=== PATIENT | female | born 1970 | race Caucasian/White ===

== ENCOUNTER → 2019-07-09 | Outpatient (CLI) | payer MEDICAID, MEDICARE, OTHER ==
[~2019-07-09] MED LIST: AMOX500C2 PO; ARMO150T3 PO; DULO60CA6 PO; EST.625T PO; FRS325T PO; HYDR-623 PO; MELO-195 PO; NS.65NA45; OXC5T PO; OXYC-12 PO; PRM25T PO; SUMA100T2 PO
--- NOTE | 2019-07-09 13:32 | Diagnostic Imaging Report ---
Indication: Bilateral breast tenderness. Correlation is made with prior mammogram 07/27/2013 and 02/08/2012. 2-D and 3-D bilateral diagnostic mammography was performed with CAD. BB markers were placed at the areas of tenderness bilateral breasts. This appears to be in the upper outer aspects bilaterally. Scattered fibroglandular densities are identified bilaterally. No mass or malignant-appearing microcalcifications are seen. The axillae are unremarkable. Impression: BI-RADS 0 No mammographic features suspicious for malignancy are identified. Even so, directed sonographic interrogation of the areas of tenderness in the upper-outer aspects of both breasts is recommended and will be performed today. Dictated by: Dictated on workstation # [id number]
--- NOTE | 2019-07-09 15:34 | Diagnostic Imaging Report ---
INDICATION: Bilateral breast tenderness. COMPARISON: Correlation is made with the diagnostic mammogram from earlier this same day. TECHNIQUE/FINDINGS: Sonographic interrogation of the areas of tenderness in the lateral aspects of the bilateral breasts was performed. No sonographic abnormality is seen. No solid or cystic mass is detected. IMPRESSION: No sonographic abnormality is seen. Dictated by: Dictated on workstation # [id number]
== END ==
LOC: RAD 12:54
PROVIDERS: ATTEND Obstetrics & Gynecology
DX: N64.4 Mastodynia (principal)
CPT/HCPCS: 76642; 77066

== ENCOUNTER 2021-09-24 19:09 | Emergency (ER) | payer SELFPAY ==
[~2021-09-24] VITALS: Ht 160 cm; Wt 66.0 kg
[2021-09-24] MEDS ORDERED: methylPREDNISolone 125 MG (Solu-MEDROL) VIAL IVP ONE (19:45)
[2021-09-24] MEDS ORDERED: KETOROLAC 30 MG/ML VIAL IVP ONE (19:45)
[2021-09-24] MEDS ORDERED: LACTATED RINGERS 1,000 ML IV ONE (19:45)
[2021-09-24 20:43] LABS: BASOPHILS % (AUTO) 0 % (0-10); EOSINOPHILS # (AUTO) 0.2 10^3/uL (0.0-0.3); EOSINOPHILS % (AUTO) 2 % (0-10); HEMATOCRIT 40 % (35-52); HEMOGLOBIN 13.3 g/dL (11.5-16.0); LYMPHOCYTES # (AUTO) 3.2 10^3/uL (1.0-4.0); LYMPHOCYTES % (AUTO) 39 % (12-44); MEAN CORPUSCULAR HEMOGLOBIN 31 pg (25-34); MEAN CORPUSCULAR HGB CONC 34 g/dL (32-36); MEAN CORPUSCULAR VOLUME 93 fL (80-99); MEAN PLATELET VOLUME 11.9 fL (9.0-12.2); MONOCYTES # (AUTO) 0.7 10^3/uL (0.0-1.0); MONOCYTES % (AUTO) 8 % (0-12); NEUTROPHILS # (AUTO) 4.2 10^3/uL (1.8-7.8); NEUTROPHILS % (AUTO) 50 % (42-75); PLATELET COUNT 235 10^3/uL (130-400); WHITE BLOOD COUNT 8.4 10^3/uL (4.3-11.0)
--- NOTE | 2021-09-24 20:55 | ED Headache ---
General Chief Complaint: Head/Cervical Problems Stated Complaint: HEAD PAIN Nursing Triage Note: PT AMB TO ED BY PO WITH C/O HEADACHE X5 DAYS. PT REPORTS THE LAWSON STARTS AT THE BASE OF HER SKULL AND GOES UP HER HEAD, HAS TAKEN ADVIL BUT LAWSON PERSISTS. HAS HAD MIGRAINES IN THE PAST, BUT REPORTS THIS FEELS DIFFERENT. Source: patient Exam Limitations: no limitations (YORDAN ANTHONY MD) History of Present Illness Date Seen by Provider: Sep 24, 2021 Time Seen by Provider: 19:29 Initial Comments This 51-year-old woman presents to the emergency room with complaints of 5 days of headache that starts at the base of the skull and wraps around over the occiput and to the parietal area. It is responsive to acetaminophen and ibuprofen but immediately rebounds after the medication effect wears off. Her last dose was 5 to 6 hours ago. She denies any acute neurologic deficits. She has had tinnitus for about 3 to 4 years. She reports history of migraines years ago but this headache seems different. She denies any trauma or notable triggers. When discussing neurologic deficits, she states she has had some difficulty swallowing liquids for a few years now but that has not changed in a ssociation with the headache. On exam she has very tight paraspinous musculature in the cervical spine. (YORDAN ANTHONY MD) Allergies and Home Medications Allergies Coded Allergies: morphine sulfate (Unverified Adverse Reaction, Mild, GI EFFECTS, 05/21/11) Patient Home Medication List Home Medication List Reviewed: Yes (YORDAN ANTHONY MD) Armodafinil (Nuvigil) 150 Mg Tablet, 75 MG PO DAILY, (Reported) Entered as Reported by: LUZ MARINA RM on 02/01/12 1253 Duloxetine Hcl (Cymbalta) 60 Mg Capsule.dr, 1 EACH PO BID, (Reported) Entered as Reported by: LUZ MARINA RM on 02/01/12 1253 Estrogens,Conjugated (Premarin) 0.625 Mg Tablet, 1 TAB PO DAILY, (Reported) Entered as Reported by: HUONG SÁNCHEZ on 01/25/12 1012 Ferrous Sulfate (Iron) 325 Mg Tablet, 1 TAB PO DAILY, (Reported) Entered as Reported by: HUONG SÁNCHEZ on 01/25/12 1012 Meloxicam (Meloxicam) 15 Mg Tablet, 1 EACH PO DAILY, (Reported) Entered as Reported by: LUZ MARINA RM on 02/01/12 1253 Oxycodone Hcl/Acetaminophen (Percocet 5-325 Mg Tablet) 1 Each Tablet, 1 EACH PO Q4H PRN, (Reported) Entered as Reported by: HUONG SÁNCHEZ on 01/25/12 1012 Promethazine Hcl (Phenergan 25 Mg) 25 Mg Tablet, 1 TAB PO Q6H PRN, (Reported) Entered as Reported by: LUZ MARINA RM on 02/01/12 1253 Sumatriptan Succinate (Imitrex) 100 Mg Tablet, 0 PO UD, (Reported) Entered as Reported by: LUZ MARINA RM on 02/01/12 1253 Review of Systems Review of Systems Constitutional: no symptoms reported Eyes: No Symptoms Reported Ears, Nose, Mouth, Throat: no symptoms reported Respiratory: no symptoms reported Cardiovascular: no symptoms reported Gastrointestinal: no symptoms reported Genitourinary: no symptoms reported Musculoskeletal: see HPI Skin: no symptoms reported Psychiatric/Neurological: See HPI (YORDAN ANTHONY MD) Past Fefwnqy-Jpppsl-Sdmpps Hx Patient Social History Tobacco Use?: Yes Tobacco type used: Cigarettes Smoking Status: Current Everyday Smoker Use of E-Cig and/or Vaping dev: No Substance use?: No Alcohol Use?: No (YORDAN ANTHONY MD) Immunizations Up To Date Influenza Vaccine Up-to-Date: No; Not Current First/Initial COVID19 Vaccinat: 2020 Second COVID19 Vaccination Igor: 2020 COVID19 Vaccine [place]: ELLYN (YORDAN ANTHONY MD) Past Medical History Surgery/Hospitalization HX: HYST, L SHOULDER Surgeries: Yes Bladder Surgery, Hysterectomy, Orthopedic (Shoulder surgery) Respiratory: No Cardiac: No Neurological: Yes Headaches /Migraines : No Reproductive Disorders: No Sexually Transmitted Disease: No Genitourinary: No Gastrointestinal: No Musculoskeletal: No Endocrine: No HEENT: No Cancer: No Psychosocial: No Integumentary: No (YORDAN ANTHONY MD) Physical Exam Vital Signs Vital Signs - First Documented 09/24/21 19:15 Temp 36.6 Pulse 80 Resp 16 B/P (MAP) 155/87 (109) Pulse Ox 96 O2 Delivery Room Air (AGUSTIN LAWRENCE) Vital Signs Capillary Refill : Less Than 3 Seconds (YORDAN ANTHONY MD) Height, Weight, BMI Height: '" Weight: lbs. oz. kg; 25.00 BMI Method:Stated General Appearance: WD/WN, mild distress HEENT: PERRL/EOMI, normal ENT inspection, TMs normal, pharynx normal Neck: normal inspection, other (Mildly tender very tense paraspinous musculature in the superior cervical spine, right greater than left) Cardiovascular: regular rate, rhythm, no edema, no murmur Respiratory: lungs clear, normal breath sounds, no respiratory distress Gastrointestinal: non tender, soft Extremities: normal inspection, no pedal edema Psychiatric: alert, oriented x 3 Crainal Nerves: normal hearing, normal speech, PERRL Coordination/Gait: normal finger to nose (Normal [id number]) Motor/Sensory: no motor deficit, no sensory deficit Skin: normal color, warm/dry (YORDAN ANHTONY MD) Progress/Results/Core Measures Results/Orders Lab Results Laboratory Tests Test 09/24/21 20:30 Range/Units White Blood Count 8.4 4.3-11.0 10^3/uL Red Blood Count 4.28 3.80-5.11 10^6/uL Hemoglobin 13.3 11.5-16.0 g/dL Hematocrit 40 35-52 % Mean Corpuscular Volume 93 80-99 fL Mean Corpuscular Hemoglobin 31 25-34 pg Mean Corpuscular Hemoglobin Concent 34 32-36 g/dL Red Cell Distribution Width 12.8 10.0-14.5 % Platelet Count 235 130-400 10^3/uL Mean Platelet Volume 11.9 9.0-12.2 fL Immature Granulocyte % (Auto) 0 % Neutrophils (%) (Auto) 50 42-75 % Lymphocytes (%) (Auto) 39 12-44 % Monocytes (%) (Auto) 8 0-12 % Eosinophils (%) (Auto) 2 0-10 % Basophils (%) (Auto) 0 0-10 % Neutrophils # (Auto) 4.2 1.8-7.8 10^3/uL Lymphocytes # (Auto) 3.2 1.0-4.0 10^3/uL Monocytes # (Auto) 0.7 0.0-1.0 10^3/uL Eosinophils # (Auto) 0.2 0.0-0.3 10^3/uL Basophils # (Auto) 0.0 0.0-0.1 10^3/uL Immature Granulocyte # (Auto) 0.0 0.0-0.1 10^3/uL Sodium Level 141 135-145 MMOL/L Potassium Level 4.0 3.6-5.0 MMOL/L Chloride Level 109 H 98-107 MMOL/L Carbon Dioxide Level 22 21-32 MMOL/L Anion Gap 10 5-14 MMOL/L Blood Urea Nitrogen 8 7-18 MG/DL Creatinine 0.74 0.60-1.30 MG/DL Estimat Glomerular Filtration Rate 83 BUN/Creatinine Ratio 11 Glucose Level 90 70-105 MG/DL Calcium Level 9.5 8.5-10.1 MG/DL Magnesium Level 2.2 1.6-2.4 MG/DL (AGUSTIN LAWRENCE) Medications Given in ED Current Medications Medications Dose Ordered Sig/Ahmet Route Start Time Stop Time Status Last Admin Dose Admin Ketorolac Tromethamine 30 mg ONCE ONCE IVP 09/24/21 19:45 09/24/21 19:46 DC 09/24/21 20:30 30 MG Lactated Ringer's 1,000 ml @ 0 mls/hr Q0M ONCE IV 09/24/21 19:45 09/24/21 19:46 DC 09/24/21 20:30 0 MLS/HR Methylprednisolone Sodium Succinate 125 mg ONCE ONCE IVP 09/24/21 19:45 09/24/21 19:46 DC 09/24/21 20:30 125 MG (AGUSTIN LAWRENCE) Vital Signs/I&O 09/24/21 19:15 Temp 36.6 Pulse 80 Resp 16 B/P (MAP) 155/87 (109) Pulse Ox 96 O2 Delivery Room Air (AGUSTIN LAWRENCE) Blood Pressure Mean: 109 Progress Progress Note #1: Time: 20:54 Progress Note Patient has been treated with Toradol and IV fluids. Solu-Medrol was added due to prolonged headache. Solu-Medrol will hopefully help prevent rebound. We are not giving any muscle relaxers at this time due to her need to drive home. Reina Lawrence, MS3 also performed OMM therapy. Basic labs were drawn and are pending at this time. Progress Note #2: Progress Note OMM was performed under my supervision and with my approval. Patient reported improvement after the therapy. Progress Note #3: Time: 21:24 Progress Note Lab evaluation was unremarkable. Patient feels much better after delivered therapies. See discharge instructions for further discussion. 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 Pt reported her neck pain had "improved a little" since initiation of her medications, rating the pain as 2/10. Pt consent was given for physical examination of neck musculature. Tight tissue texture was noted in the suboccipital region, with asymmetry on the right side. There was no tenderness to palpation. Permission was given by pt to treat the musculature. Pt was informed that said treatments were meant to be relaxing, and to report any discomfort throughout the process. OMM was performed while pt was supine, including suboccipital release, cervical ART, and soft tissue techniques including perpendicular traction and cradling with traction. Pt was repeatedly asked if she was doing okay or if there was any discomfort. Pt continuously reported she was doing fine, and confirmed upon completion of treatment that it had been relaxing. (AGUSTIN LAWRENCE) Departure Impression Primary Impression: Tension type headache Qualified Codes: G44.209 - Tension-type headache, unspecified, not intractable Additional Impression: Neck muscle spasm Disposition: HOME, SELF-CARE Condition: Improved Admissions Decision to Admit Reason: Admit from ER (General) Decision to Admit/Date: Sep 24, 2021 Time/Decision to Admit Time: 21:28 (YORDAN ANTHONY MD) Departure-Patient Inst. Decision time for Depature: 21:24 (YORDAN ANTHONY MD) Referrals: ARLETH ORTIZ MD (PCP/Family) Primary Care Physician Patient Instructions: Tension Headache Add. Discharge Instructions: Drink plenty of clear liquids to stay well-hydrated. You may continue to use ibuprofen up to 600 mg every 6 hours as needed and/or Tylenol (acetaminophen) up to 1000 mg every 6 hours as needed for headache. You may use cyclobenzaprine as prescribed for muscle spasms or tension in your neck. Please use this medication with caution as it may cause drowsiness. Do not drive, operate machinery, or make important decisions or do other dangerous activities while on this medication. Concentrate on treatment of the tension in your neck which might include gentle stretching, gentle heat, massage, etc. If your headache has not resolved after a few days, please see your primary care provider and discuss further work-up and treatment. Further evaluation may be warranted which might include other lab work such as vitamin D, imaging of the head such as CT or MRI, etc. at the discretion of your primary care provider. Return to the ER if you have worsening symptoms despite treatment including escalating pain or neurologic deficits such as changes in vision, weakness or numbness of any body part, facial drooping, difficulty speaking, etc. Call with questions or concerns. Call your primary care provider's office tomorrow to get an appointment scheduled. This appointment can always be canceled later if your symptoms completely resolved. All discharge instructions reviewed with patient and/or family. Voiced understanding. Scripts Cyclobenzaprine HCl (Cyclobenzaprine HCl) 10 Mg Tablet 10 MG PO Q8H PRN for SPASMS, #15 TAB 0 Refills Prov: YORDAN ANTHONY MD 09/24/21 Copy Copies To 1: ARLETH ORTIZ MD, JOSHUA T MD Sep 24, 2021 20:55 AGUSTIN LAWRENCE Sep 24, 2021 21:21
[2021-09-24 20:56] LABS: CALCIUM 9.5 MG/DL (8.5-10.1); CREATININE SERUM 0.74 MG/DL (0.60-1.30); MAGNESIUM 2.2 MG/DL (1.6-2.4)
[2021-09-24] MEDS ORDERED: CYCL10TA25 PO (21:28)
[2021-09-24 21:40] VITALS: BP 135/87
== END 2021-09-24 21:41 | disposition home or self-care (01) ==
LOC: EDUNIT# 19:09 → ER 19:11
DX: G44.209 Tension-type headache, unspecified, not intractable (principal); M62.838 Other muscle spasm; F17.210 Nicotine dependence, cigarettes, uncomplicated
CPT/HCPCS: 36415; 80048; 83735; 85025; 96374; 96375

== ENCOUNTER 2023-07-01 12:19 | Emergency (ER) | payer SELFPAY ==
[~2023-07-01] VITALS: Ht 160 cm; Wt 70.3 kg
[~2023-07-01 12:19] MED LIST changes: +CYCL10TA25 PO
[2023-07-01 12:36] LABS: BASOPHILS # (AUTO) 0.1 10^3/uL (0.0-0.1); BASOPHILS % (AUTO) 1 % (0-10); EOSINOPHILS # (AUTO) 0.2 10^3/uL (0.0-0.3); EOSINOPHILS % (AUTO) 3 % (0-10); HEMATOCRIT 42 % (35-52); LYMPHOCYTES # (AUTO) 2.5 10^3/uL (1.0-4.0); LYMPHOCYTES % (AUTO) 33 % (12-44); MEAN CORPUSCULAR HEMOGLOBIN 32 pg (25-34); MEAN CORPUSCULAR HGB CONC 34 g/dL (32-36); MEAN CORPUSCULAR VOLUME 94 fL (80-99); MONOCYTES # (AUTO) 0.8 10^3/uL (0.0-1.0); MONOCYTES % (AUTO) 10 % (0-12); NEUTROPHILS # (AUTO) 4.1 10^3/uL (1.8-7.8); NEUTROPHILS % (AUTO) 54 % (42-75); PLATELET COUNT 248 10^3/uL (130-400); WHITE BLOOD COUNT 7.6 10^3/uL (4.3-11.0)
[2023-07-01 12:54] LABS: ALBUMIN 4.3 GM/DL (3.2-4.5); BILIRUBIN,TOTAL 0.3 MG/DL (0.1-1.0); CALCIUM 9.4 MG/DL (8.5-10.1); CREATININE SERUM 0.79 MG/DL (0.60-1.30); TOTAL PROTEIN 7.1 GM/DL (6.4-8.2)
--- NOTE | 2023-07-01 12:54 | ED Abdominal Pain ---
General Chief Complaint: Abdominal/GI Problems Stated Complaint: ABD PAIN Nursing Triage Note: PT AMB TO RM 7 WITH COMPLAINT OF LOW ABD PAIN. STATES STARTED YESTERDAY. DESCRIBES SORE. DENIES N/V/D Source of Information: Patient Exam Limitations: No Limitations (MAUREEN FLORIAN) History of Present Illness Date Seen by Provider: Jul 01, 2023 Time Seen by Provider: 12:51 Initial Comments Patient is a 53-year-old female who presents to the ED for mid abdominal pain. Abdominal pain started yesterday. Pain is described as dull and sore and const ant. Rates pain 4 out of 10. Pain radiates bilateral abdomen. She denies nausea, vomiting, diarrhea. No urinary symptoms. Patient took a leftover oxycodone without much improvement. History of cholecystectomy, hysterectomy, bladder lift. Patient denies of any flulike symptoms such as shortness of breath, cough, runny nose, sore throat or sinus pressure. Denies history of si milar type symptoms. Denies of any bloody mucousy stool. No urinary symptoms (MAUREEN FLORIAN) Allergies and Home Medications Allergies Coded Allergies: morphine sulfate (Unverified Adverse Reaction, Mild, GI EFFECTS, 05/21/11) Patient Home Medication List Home Medication List Reviewed: Yes (MAUREEN FLORIAN) Armodafinil (Nuvigil) 150 Mg Tablet, 75 MG PO DAILY, (Reported) Entered as Reported by: LUZ MARINA RM on 02/01/12 1253 Cyclobenzaprine HCl (Cyclobenzaprine HCl) 10 Mg Tablet, 10 MG PO Q8H PRN for SPASMS Prescribed by: YORDAN MORRELL on 09/24/212127 Duloxetine Hcl (Cymbalta) 60 Mg Capsule.dr, 1 EACH PO BID, (Reported) Entered as Reported by: LUZ MARINA RM on 02/01/12 1253 Estrogens,Conjugated (Premarin) 0.625 Mg Tablet, 1 TAB PO DAILY, (Reported) Entered as Reported by: HUONG SÁNCHEZ on 01/25/12 1012 Ferrous Sulfate (Iron) 325 Mg Tablet, 1 TAB PO DAILY, (Reported) Entered as Reported by: HUONG SÁNCHEZ on 01/25/12 1012 Meloxicam (Meloxicam) 15 Mg Tablet, 1 EACH PO DAILY, (Reported) Entered as Reported by: LUZ MARINA RM on 02/01/12 1253 Ondansetron (Ondansetron Odt) 4 Mg Tab.rapdis, 4 MG SL Q4H PRN for NAUSEA/VOMITING Prescribed by: MEGA SANDOVAL on 07/01/23 1412 Oxycodone Hcl/Acetaminophen (Percocet 5-325 Mg Tablet) 1 Each Tablet, 1 EACH PO Q4H PRN, (Reported) Entered as Reported by: HUONG SÁNCHEZ on 01/25/12 1012 Promethazine Hcl (Phenergan 25 Mg) 25 Mg Tablet, 1 TAB PO Q6H PRN, (Reported) Entered as Reported by: LUZ MARINA RM on 02/01/12 1253 Sumatriptan Succinate (Imitrex) 100 Mg Tablet, 0 PO UD, (Reported) Entered as Reported by: LUZ MARINA RM on 02/01/12 1253 Review of Systems Review of Systems Constitutional: No chills, No diaphoresis EENTM: No Double Vision, No Eye Pain Respiratory: Denies Cough, Denies Orthopnea Cardiovascular: Denies Chest Pain Gastrointestinal: Abdominal Pain; Denies Diarrhea, Denies Nausea, Denies Vomiting Genitourinary: Denies Burning, Denies Discharge Musculoskeletal: No back pain, No joint pain Skin: No change in color, No change in hair/nails (MAUREEN FLORIAN) All Other Systems Reviewed Negative Unless Noted: Yes (MAUREEN FLORIAN) Past Kfxvnuq-Jyigrt-Rhzhav Hx Patient Social History Tobacco Use?: Yes Tobacco type used: Cigarettes Smoking Status: Current Everyday Smoker Use of E-Cig and/or Vaping dev: No Substance use?: No Alcohol Use?: No Pt feels they are or have been: No (MAUREEN FLORIAN) Immunizations Up To Date First/Initial COVID19 Vaccinat: 2020 Second COVID19 Vaccination Igor: 2020 Third COVID19 Vaccination Date: 2020 (MAUREEN FLORIAN) Past Medical History Surgery/Hospitalization HX: HYST, L SHOULDER Surgeries: Yes Bladder Surgery, Hysterectomy, Orthopedic Respiratory: No Cardiac: No Neurological: Yes Headaches /Migraines Reproductive Disorders: No Sexually Transmitted Disease: No Genitourinary: No Gastrointestinal: No Musculoskeletal: No Endocrine: No HEENT: No Cancer: No Psychosocial: No Integumentary: No (MAUREEN FLORIAN) Physical Exam Vital Signs Vital Signs - First Documented 07/01/23 12:23 Temp 36.0 Pulse 86 Resp 16 B/P (MAP) 150/79 (102) Pulse Ox 95 O2 Delivery Room Air (KEITH,JOSELITO K DO) Vital Signs Capillary Refill : Less Than 3 Seconds (MAUREEN FLORIAN) Height/Weight/BMI Height: '" Weight: lbs. oz. kg; 27.00 BMI Method:Stated General Appearance: WD/WN, no apparent distress HEENT: PERRL/EOMI, normal ENT inspection, TMs normal, pharynx normal Neck: non-tender, full range of motion, supple, normal inspection Respiratory: chest non-tender, lungs clear, normal breath sounds, no respiratory distress, no accessory muscle use Cardiovascular: regular rate, rhythm, no edema, no gallop, no JVD Gastrointestinal: normal bowel sounds, soft, no pulsatile mass, tenderness (Mid abdominal tenderness. Normal bowel sounds throughout) Extremities: normal range of motion, non-tender, normal inspection, no pedal edema Back: normal inspection, no CVA tenderness Neurologic/Psychiatric: stone belt sander II-XII nml as tested, no motor/sensory deficits, alert, normal mood/affect, oriented x 3 Skin: normal color, warm/dry (MAUREEN FLORIAN) Progress/Results/Core Measures Results/Orders Lab Results Laboratory Tests Test 07/01/23 12:27 07/01/23 12:33 Range/Units White Blood Count 7.6 4.3-11.0 10^3/uL Red Blood Count 4.42 3.80-5.11 10^6/uL Hemoglobin 14.0 11.5-16.0 g/dL Hematocrit 42 35-52 % Mean Corpuscular Volume 94 80-99 fL Mean Corpuscular Hemoglobin 32 25-34 pg Mean Corpuscular Hemoglobin Concent 34 32-36 g/dL Red Cell Distribution Width 12.8 10.0-14.5 % Platelet Count 248 130-400 10^3/uL Mean Platelet Volume 12.0 9.0-12.2 fL Immature Granulocyte % (Auto) 0 % Neutrophils (%) (Auto) 54 42-75 % Lymphocytes (%) (Auto) 33 12-44 % Monocytes (%) (Auto) 10 0-12 % Eosinophils (%) (Auto) 3 0-10 % Basophils (%) (Auto) 1 0-10 % Neutrophils # (Auto) 4.1 1.8-7.8 10^3/uL Lymphocytes # (Auto) 2.5 1.0-4.0 10^3/uL Monocytes # (Auto) 0.8 0.0-1.0 10^3/uL Eosinophils # (Auto) 0.2 0.0-0.3 10^3/uL Basophils # (Auto) 0.1 0.0-0.1 10^3/uL Immature Granulocyte # (Auto) 0.0 0.0-0.1 10^3/uL Sodium Level 139 135-145 MMOL/L Potassium Level 4.0 3.6-5.0 MMOL/L Chloride Level 108 H 98-107 MMOL/L Carbon Dioxide Level 23 21-32 MMOL/L Anion Gap 8 5-14 MMOL/L Blood Urea Nitrogen 8 7-18 MG/DL Creatinine 0.79 0.60-1.30 MG/DL Estimat Glomerular Filtration Rate 91 BUN/Creatinine Ratio 10 Glucose Level 100 70-105 MG/DL Calcium Level 9.4 8.5-10.1 MG/DL Corrected Calcium 9.2 8.5-10.1 MG/DL Total Bilirubin 0.3 0.1-1.0 MG/DL Aspartate Amino Transf (AST/SGOT) 15 5-34 U/L Alanine Aminotransferase (ALT/SGPT) 10 0-55 U/L Alkaline Phosphatase 64 40-136 U/L C-Reactive Protein High Sensitivity 0.18 0.00-0.50 MG/DL Total Protein 7.1 6.4-8.2 GM/DL Albumin 4.3 3.2-4.5 GM/DL Amylase Level 47 25-125 U/L Lipase 47 8-78 U/L Urine Color YELLOW Urine Clarity CLEAR Urine pH 5.5 5-9 Urine Specific [place] 1.010 L 1.016-1.022 Urine Protein NEGATIVE NEGATIVE Urine Glucose (UA) NEGATIVE NEGATIVE Urine Ketones NEGATIVE NEGATIVE Urine Nitrite NEGATIVE NEGATIVE Urine Bilirubin NEGATIVE NEGATIVE Urine Urobilinogen 0.2 < = 1.0 MG/DL Urine Leukocyte Esterase NEGATIVE NEGATIVE Urine RBC (Auto) NEGATIVE NEGATIVE Urine RBC NONE /HPF Urine WBC NONE /HPF Urine Squamous Epithelial Cells 0-2 /HPF Urine Crystals NONE /LPF Urine Bacteria NEGATIVE /HPF Urine Casts NONE /LPF Urine Mucus NEGATIVE /LPF Urine Culture Indicated NO (KEITHJOSELITOJodi Cabrera DO) My Orders Orders - JOSELITO PARKER DO Ed Iv/Invasive Line Start (07/01/23 12:24) Monitor-Rhythm Ecg Trace Only (07/01/23 12:24) Amylase (07/01/23 12:24) Cbc With Automated Diff (07/01/23 12:24) Comprehensive Metabolic Panel (07/01/23 12:24) Hs C Reactive Protein (07/01/23 12:24) Lipase (07/01/23 12:24) Ua Culture If Indicated (07/01/23 12:24) (JOSELITO PARKER DO) Medications Given in ED Current Medications Medications Dose Ordered Sig/Ahmet Route Start Time Stop Time Status Last Admin Dose Admin Iohexol 100 ml ONCE ONCE IV 07/01/23 13:15 07/01/23 13:16 DC 07/01/23 13:31 80 ML Sodium Chloride 100 ml ONCE ONCE IV 07/01/23 13:15 07/01/23 13:16 DC 07/01/23 13:31 80 ML (JOSELITO PARKER DO) Vital Signs/I&O 07/01/23 07/01/23 12:23 14:18 Temp 36.0 36.0 Pulse 86 86 Resp 16 16 B/P (MAP) 150/79 (102) 145/76 Pulse Ox 95 95 O2 Delivery Room Air Room Air (JOSELITO PARKER DO) Blood Pressure Mean: 102 Departure Communication (PCP) Reviewed previous ER visits, H&P, lab testing. Presents ED with mid abdominal pain with radiation to the abdomen bilateral. No nausea vomiting diarrhea fever chills body aches. History of cholecystectomy and hysterectomy. CBC, CMP, lipase was ordered. Differential diagnosis, colitis, diverticulitis, tone endicitis. CBC, CMP grossly unremarkable. Normal lipase. Urinalysis without evidence of infection. She does have tenderness near her umbilicus left lower quadrant or right lower quadrant. CT abdomen pelvis was negative for diverticulitis or appendicitis. Did show colonic wall thickening which can be seen with colitis. Nonspecific finding. Prominent left hepatic lobe. no h istory inflammatory bowel disease. No vomiting, diarrhea, fever or elevated white blood count suggesting infectious. Will not treat with antibiotics at this time. She refused anything for pain. Discussed all results with patient. At this time no evidence of surgical abdomen. Discussed the results and plan. Conservative treatment at this time. Suggest discharging with Zofran to help with any type of nausea. Pepto-Bismol with abdominal cramping and discomfort. No history of IBS. She does not appear toxic or septic. If any worsening pain, fever vomiting to return back to ED. Recommend follow-up with your PCP in 2 to 3 days for reevaluation. Patient is hemodynamically stable. (MAUREEN FLORIAN) Impression Primary Impression: Abdominal pain Disposition: 01 HOME, SELF-CARE Condition: Stable Departure-Patient Inst. Decision time for Depature: 14:10 (MAUREEN FLORIAN) Referrals: HARPAL KANG APRN (PCP/Family) Primary Care Physician Patient Instructions: Abdominal Pain, Adult ED Add. Discharge Instructions: Recommend Zofran for nausea. Recommend staying hydrated. May try Pepto-Bismol. Clear liquid diet for the next few days. If any worsening pain, fever, vomiting to return back to ED. Follow-up with PCP in 2 to 3 days for evaluation All discharge instructions reviewed with patient and/or family. Voiced understanding. Scripts Ondansetron (Ondansetron Odt) 4 Mg Tab.rapdis 4 MG SL Q4H PRN for NAUSEA/VOMITING, #8 TAB Prov: MAUREEN FLORIAN 07/01/23 ATTENDING PHYSICIAN NOTE: I WAS PHYSICALLY PRESENT ER PHYSICIAN, BUT I WAS NOT INVOLVED IN ANY DECISION MAKING OR ANY CARE OF THIS PATIENT AND I AM NOT COLLABORATING PHYSICIAN. (JOSELITO PARKER DO) MAUREEN FLORIAN Jul 01, 2023 12:54 JOSELITO PARKER DO Jul 01, 2023 17:29
[2023-07-01 12:56] LABS: BACTERIA,URINE NEGATIVE /HPF; BILIRUBIN,URINE NEGATIVE (NEGATIVE); CLARITY,URINE CLEAR; COLOR,URINE YELLOW; GLUCOSE, URINE (UA) NEGATIVE (NEGATIVE); KETONES,URINE NEGATIVE (NEGATIVE); LEUKOCYTE ESTERASE ,URINE NEGATIVE (NEGATIVE); NITRITE,URINE NEGATIVE (NEGATIVE); PH,URINE 5.5 (5-9); PROTEIN,URINE NEGATIVE (NEGATIVE); SQUAMOUS EPITHELIAL CELL,UR 0-2 /HPF
[2023-07-01] MEDS ORDERED: IOHEXOL 350 MG/ML 100 ML (OMNIPAQUE 350) VIAL IV ONE (13:15)
[2023-07-01] MEDS ORDERED: NS 100 ML (IVPB) BAG IV ONE (13:15)
--- NOTE | 2023-07-01 13:45 | Diagnostic Imaging Report ---
PROCEDURE: CT abdomen and pelvis with contrast, rule out appendicitis. TECHNIQUE: Multiple contiguous axial images were obtained through the abdomen and pelvis after the administration of intravenous contrast. All CT scans use one or more of the following dose optimizing techniques: Automated exposure control, MA and/or KvP adjustment based on patient size and exam type or iterative reconstruction. INDICATION: Abdominal pain, most pronounced in the mid and right lower quadrant. FINDINGS: There is prominence of the left hepatic lobe. Gallbladder is surgically absent. There is no focal hepatic abnormality or significant biliary ductal dilatation. No pancreatic, adrenal gland, or renal abnormality is seen. There is no evidence of appendiceal inflammation. There is mild aortoiliac atherosclerotic calcification. Unopacified urinary bladder is unremarkable. There is no evidence of organized fluid collection or focal inflammation. No pathologically enlarged adenopathy is seen. Colon is incompletely distended which limits evaluation. There is questionable mild colonic mural thickening. Mild lower lumbar disc bulging is present with lower lumbar degenerative facet arthropathy. IMPRESSION: No definite acute abnormality is identified. There is questionable colonic wall thickening which can be seen with colitis, and clinical correlation is recommended. No perforation, abscess, or other acute abnormality is seen. Note is made of prominent left hepatic lobe. Dictated by: Dictated on workstation # [id number]
[2023-07-01] MEDS ORDERED: ONDA4TAB11 SL (14:12)
[2023-07-01 14:18] VITALS: BP 145/76
== END 2023-07-01 14:18 | disposition home or self-care (01) ==
LOC: EDUNIT# 12:19 → ER 12:21
DX: R10.9 Unspecified abdominal pain (principal); R11.0 Nausea; F17.210 Nicotine dependence, cigarettes, uncomplicated; Z90.49 Acquired absence of other specified parts of digestive tract
CPT/HCPCS: 36415; 74177; 80053; 81000; 82150; 83690; 85025; 86141